=== PATIENT | male | born 1940 | race Caucasian/White ===

== ENCOUNTER 2018-03-08 05:47 | Inpatient (IN) | payer MEDICARE, BC ==
[~2018-03-08] VITALS: Ht 200.7 cm; Wt 95.0 kg
[~2018-03-08 05:47] MED LIST: ACET325 PO; ALBU90OI61 INH; ALPR.25 PO; AMIO200 PO; AMOX875 PO; CARV6.25 PO; CEPH500 PO; CHOL10002 PO; CITRUS BIOFLAV120 GM PO; CYAN100 PO; DIGO.125 PO; DULO30 PO; ERGO50000 PO; FISH OIL 1,0001 EAC1 PO; FISH1000 PO; Flomax0.4 MG PO; GABA100 PO; GABA300 PO; GAVISON; GLUC500 PO; GLUCHON PO; GLUCOSAMINE/MSN PO; Gaviscon Extra355 ML PO; HYDACE5 PO; HYDCHL12.5 PO; IBUP400 PO; IRON; IRON PO; IRON150C PO; LOSA50 PO; MAGOXI400 PO; MSM1000 M1 PO; MULVITMINA PO; MULVITMIND PO; MULVITMINF PO; NEBI10 PO; Norco 5-325 Ta1 EACH PO; OXYACE5T PO; PRAV20 PO; Percocet 5-3251 EACH PO; RXOXYACE PO; SPIHYD PO; VIT B COMPLEX PO; VITNEPH PO; WARF1 PO; WARF5 PO; WARF6 PO; WARF7.5 PO; Zofran Odt4 MG PO
[2018-03-09 04:28] LABS: BASOPHILS ABSOLUTE AUTO 0.02 K/mm3 (0.00-0.23); BASOPHILS PERCENT AUTO 0 % (0-2); EOSINOPHILS ABSOLUTE AUTO 0.14 K/mm3 (0.00-0.68); EOSINOPHILS PERCENT AUTO 2 % (0-6); Hematocrit 39.1 % (37.0-53.0); Hemoglobin 13.4 g/dL (13.5-17.5); IMMATURE GRAN ABSOLUTE AUTO 0.03 K/mm3 (0.00-0.10); IMMATURE GRAN PERCENT AUTO 0 % (0-1); LYMPHOCYTES PERCENT AUTO 19 % (21-46); MONOCYTES ABSOLUTE AUTO 0.97 K/mm3 (0.16-1.47); MONOCYTES PERCENT AUTO 12 % (4-13); Mean Corpuscular HGB 34.1 pg (26.0-34.0); Mean Corpuscular HGB Conc 34.3 g/dL (31.5-36.5); Mean Corpuscular Volume 100 fL (80-100); Mean Platelet Volume 9.9 fL (9.1-12.4); NEUTROPHILS PERCENT AUTO 67 % (41-73); Platelet Count 162 K/mm3 (150-400); RDW Coefficient Variation 12.8 % (11.7-14.2); RDW Standard Deviation 47.3 fL (35.1-46.3); Red Blood Cell Count 3.93 M/mm3 (4.30-5.90); White Blood Cell Count 8.46 K/mm3 (4.00-11.30)
[2018-03-09 04:41] LABS: International Normalized Ratio 1.07; Prothrombin Time Results 11.2 Sec (9.7-11.5)
[2018-03-09] MEDS ORDERED: ASPI325 PO (09:05)
[2018-03-09] MEDS ORDERED: CLOP75 PO (09:06)
== END 2018-03-09 10:54 | disposition home or self-care (01) | DRG 249 ==
LOC: MHTC 05:47 → PCU 09:55 → MHTC 16:00 → PCU 03-09 10:54
PROVIDERS: Emergency Medicine
PROC: 02703DZ Dilation of Coronary Artery, One Artery with Intraluminal Device, Percutaneous Approach (ICD-10-PCS; principal; 2018-03-08)
PROC: 4A023N7 Measurement of Cardiac Sampling and Pressure, Left Heart, Percutaneous Approach (ICD-10-PCS; 2018-03-08)
PROC: B2111ZZ Fluoroscopy of Multiple Coronary Arteries using Low Osmolar Contrast (ICD-10-PCS; 2018-03-08)
DX: I25.119 Atherosclerotic heart disease of native coronary artery with unspecified angina pectoris (principal); I48.2 Chronic atrial fibrillation; Z79.01 Long term (current) use of anticoagulants; I10 Essential (primary) hypertension; E78.5 Hyperlipidemia, unspecified; I73.9 Peripheral vascular disease, unspecified; M54.9 Dorsalgia, unspecified; G89.29 Other chronic pain
CPT/HCPCS: 36415; 82565; 85025; 85347; 85610; 92928; 92978; 93005; 93010; 93454; 93571; 94762; 99152; 99153; C1725; C1753; C1769; C1876; C1887; C1894; J1644; J2250; J3010; J7030; Q9967

== ENCOUNTER 2018-07-26 04:37 | Emergency (ER) | payer MEDICARE, BC ==
[~2018-07-26] VITALS: Ht 170.2 cm; Wt 93.9 kg
[~2018-07-26 04:37] MED LIST changes: +ASPI325 PO; +CLOP75 PO
[2018-07-26 04:57] LABS: BASOPHILS ABSOLUTE AUTO 0.03 K/mm3 (0.00-0.23); BASOPHILS PERCENT AUTO 0 % (0-2); EOSINOPHILS ABSOLUTE AUTO 0.19 K/mm3 (0.00-0.68); EOSINOPHILS PERCENT AUTO 3 % (0-6); Hematocrit 41.4 % (37.0-53.0); Hemoglobin 13.7 g/dL (13.5-17.5); IMMATURE GRAN ABSOLUTE AUTO 0.02 K/mm3 (0.00-0.10); IMMATURE GRAN PERCENT AUTO 0 % (0-1); LYMPHOCYTES ABSOLUTE AUTO 2.15 K/mm3 (0.84-5.20); LYMPHOCYTES PERCENT AUTO 29 % (21-46); MONOCYTES ABSOLUTE AUTO 0.81 K/mm3 (0.16-1.47); MONOCYTES PERCENT AUTO 11 % (4-13); Mean Corpuscular HGB 33.3 pg (26.0-34.0); Mean Corpuscular HGB Conc 33.1 g/dL (31.5-36.5); Mean Corpuscular Volume 101 fL (80-100); Mean Platelet Volume 9.8 fL (9.1-12.4); NEUTROPHILS ABSOLUTE AUTO 4.26 K/mm3 (1.96-9.15); NEUTROPHILS PERCENT AUTO 57 % (41-73); Platelet Count 170 K/mm3 (150-400); RDW Coefficient Variation 12.8 % (11.7-14.2); RDW Standard Deviation 47.9 fL (35.1-46.3); Red Blood Cell Count 4.11 M/mm3 (4.30-5.90); White Blood Cell Count 7.46 K/mm3 (4.00-11.30)
[2018-07-26 05:29] LABS: Alanine Aminotransfer (ALT/SGP 28 U/L (12-78); Albumin, Blood 3.4 g/dL (3.4-5.0); Albumin/Globulin Ratio 0.8 (0.8-1.8); Alk Phos 85 U/L (50-136); Anion Gap 5 mmol/L (6-16); Aspartate Aminotrans (AST/SGOT 26 U/L (12-37); Bilirubin, Total 0.4 mg/dL (0.1-1.0); Blood Urea Nitrogen 15 mg/dL (8-24); Bun/Creatinine Ratio 16.3 (12.0-20.0); CO2, Blood 31 mmol/L (21-32); Calcium, Blood 8.7 mg/dL (8.5-10.1); Chloride, Blood 101 mmol/L (98-108); Creatinine, Blood 0.92 mg/dL (0.60-1.20); Glomerular Filtration Rate >60 (60-); Glucose, Blood 102 mg/dL (70-99); Potassium, Blood 4.3 mmol/L (3.5-5.5); Sodium, Blood 137 mmol/L (136-145); Total Protein, Blood 7.4 g/dL (6.4-8.2)
== END 2018-07-26 06:40 | disposition home or self-care (01) ==
LOC: ER 04:37
PROVIDERS: Emergency Medicine
DX: R10.32 Left lower quadrant pain (principal); I48.91 Unspecified atrial fibrillation; Z79.899 Other long term (current) drug therapy; Z79.01 Long term (current) use of anticoagulants; Z79.51 Long term (current) use of inhaled steroids; Z79.82 Long term (current) use of aspirin
CPT/HCPCS: 36415; 74176; 80053; 85025; 99284-25

== ENCOUNTER 2019-06-29 16:02 | Emergency (ER) | payer MEDICARE, BC ==
[~2019-06-29] VITALS: Ht 170.2 cm; Wt 95.2 kg
[~2019-06-29 16:02] MED LIST changes: +CENTRUM SILVER1 EAC2 PO; -MULVITMINF PO; +VITAMIN D35000 UNIT PO
[2019-06-29] MEDS ORDERED: TAMS.4ER PO (16:58)
[2019-06-29] MEDS ORDERED: GABA300 PO (16:59)
[2019-06-29] MEDS ORDERED: Percocet 5-3251 EACH PO (17:01)
[2019-06-29] MEDS ORDERED: Voltaren100 GM TOP (18:09)
[2019-06-29] MEDS ORDERED: Robaxin-750750 MG PO (18:09)
== END 2019-06-29 18:18 | disposition home or self-care (01) ==
LOC: ER 16:02
DX: S32.019A Unspecified fracture of first lumbar vertebra, initial encounter for closed fracture (principal); Z79.01 Long term (current) use of anticoagulants; Z79.899 Other long term (current) drug therapy; G89.29 Other chronic pain; M54.9 Dorsalgia, unspecified; N40.0 Benign prostatic hyperplasia without lower urinary tract symptoms; I48.92 Unspecified atrial flutter; E78.5 Hyperlipidemia, unspecified; I10 Essential (primary) hypertension; Z87.01 Personal history of pneumonia (recurrent); V89.2XXA Person injured in unspecified motor-vehicle accident, traffic, initial encounter
CPT/HCPCS: 72070; 72100; 96372; 99283-25; J1885

== ENCOUNTER → 2021-10-13 | Outpatient (CLI) | payer MEDICARE, BC ==
[~2021-10-13] MED LIST changes: +Robaxin-750750 MG PO; +TAMS.4ER PO; +Voltaren100 GM TOP
[2021-10-13 16:07] LABS: U Amphetamine Screen Not Detected; U Barbituate Screen Not Detected; U Benzodiazapine Screen Not Detected; U Buprenorphine Screen Not Detected; U Cannabinoids Screen DETECTED; U Cocaine Screen Not Detected; U Methadone Screen Not Detected; U Methamphetamine Screen Not Detected; U Opiates Screen Not Detected; U Oxycodone Screen Not Detected; U Phencyclidine Screen Not Detected; U Propoxyphene Screen Not Detected
== END | disposition home or self-care (01) ==
LOC: LAB SHORT 12:00
PROVIDERS: Internal Medicine Hematology & Oncology
DX: Z51.81 Encounter for therapeutic drug level monitoring (principal); Z79.899 Other long term (current) drug therapy

== ENCOUNTER 2023-03-03 22:22 | Inpatient (IN) | payer MEDICARE, BC ==
[~2023-03-03] VITALS: Ht 167.6 cm; Wt 86.8 kg
[~2023-03-03 22:22] MED LIST changes: +LOSA25 PO; +METOPROLOL TART50 M1 PO; +MONT10T PO; +PANT40 PO; +SPIR25 PO; +STIOLTO RESPIMAT4 G1; +TORS10 PO; +VITAMIN D310 MC4 PO; -VITAMIN D35000 UNIT PO
[2023-03-04 00:05] LABS: BASOPHILS ABSOLUTE AUTO 0.05 K/mm3 (0.00-0.23); BASOPHILS PERCENT AUTO 0 % (0-2); EOSINOPHILS ABSOLUTE AUTO 0.02 K/mm3 (0.00-0.68); EOSINOPHILS PERCENT AUTO 0 % (0-6); Hematocrit 41.7 % (37.0-53.0); Hemoglobin 13.9 g/dL (13.5-17.5); IMMATURE GRAN ABSOLUTE AUTO 0.05 K/mm3 (0.00-0.10); IMMATURE GRAN PERCENT AUTO 0 % (0-1); LYMPHOCYTES ABSOLUTE AUTO 1.22 K/mm3 (0.84-5.20); LYMPHOCYTES PERCENT AUTO 9 % (21-46); MONOCYTES ABSOLUTE AUTO 1.25 K/mm3 (0.16-1.47); MONOCYTES PERCENT AUTO 9 % (4-13); Mean Corpuscular HGB 33.3 pg (26.0-34.0); Mean Corpuscular HGB Conc 33.3 g/dL (31.5-36.5); Mean Corpuscular Volume 100 fL (80-100); Mean Platelet Volume 10.5 fL (9.1-12.4); NEUTROPHILS ABSOLUTE AUTO 11.05 K/mm3 (1.96-9.15); NEUTROPHILS PERCENT AUTO 81 % (41-73); Platelet Count 171 K/mm3 (150-400); RDW Coefficient Variation 13.5 % (11.7-14.2); RDW Standard Deviation 49.3 fL (35.1-46.3); Red Blood Cell Count 4.18 M/mm3 (4.30-5.90); White Blood Cell Count 13.64 K/mm3 (4.00-11.30)
[2023-03-04 00:18] LABS: Albumin, Blood 3.6 g/dL (3.4-5.0); Bilirubin, Total 0.9 mg/dL (0.1-1.0); Bun/Creatinine Ratio 23.1 (12.0-20.0); Calcium, Blood 8.9 mg/dL (8.5-10.1); Creatinine, Blood 1.04 mg/dL (0.60-1.20); Globulin, Blood 3.7 g/dL (2.2-4.0); Potassium, Blood 4.5 mmol/L (3.5-5.5); Total Protein, Blood 7.3 g/dL (6.4-8.2)
[2023-03-04 00:26] LABS: Base Excess Venous 2.6 mmol/L; Bicarbonate Venous 25.3 mmol/L (24.0-30.0); PCO2 Venous 51.4 mmHg (38-42); pH Blood Venous 7.35 (7.34-7.37)
[2023-03-04 00:49] LABS: International Normalized Ratio 1.92; Prothrombin Time Results 19.4 Sec (9.7-11.5)
[2023-03-04 01:09] LABS: Influenza A, PCR NEGATIVE (NEGATIVE); Influenza B, PCR NEGATIVE (NEGATIVE); Resp Syncytial Virus, PCR NEGATIVE (NEGATIVE); SARS-Cov-2 (COVID-19) PCR, MMC NEGATIVE (NEGATIVE)
[2023-03-04 01:47] LABS: Magnesium, Blood 1.9 mg/dL (1.6-2.4)
[2023-03-04] MEDS ORDERED: AMLO5 PO (02:51)
[2023-03-04 03:18] VITALS: BP 140/102
[2023-03-04] MEDS ORDERED: REPATHA SY140 MG/1 M (03:26)
--- NOTE | 2023-03-04 04:56 | NUR ---
ADMIT/SHIFT SUMMARY PT TO UNIT FROM ER. AXO. ON 2LNS, TITRATED TO 6LNC TO MAINTAIN SPO2 >92%. PT DESATS WITH GETTING P TO 82%, TAKES 2MINUTES OF REST TO RECOUPERATE. PT BEING DIURESED WELL WITH MUCH OUTPUT. IN AFIB, CONTROLLED HR CURRENTLY. VSS. SKIN WITHOUT BREAKDOWN. ADMISSION COMPLETE. PT WITH BED ALARM ON. BED IN LOW POSITION WITH CALL LIGHT IN HAND.
[2023-03-04 07:11] LABS: BASOPHILS ABSOLUTE AUTO 0.05 K/mm3 (0.00-0.23); BASOPHILS PERCENT AUTO 0 % (0-2); EOSINOPHILS ABSOLUTE AUTO 0.04 K/mm3 (0.00-0.68); EOSINOPHILS PERCENT AUTO 0 % (0-6); Hematocrit 37.6 % (37.0-53.0); Hemoglobin 12.7 g/dL (13.5-17.5); IMMATURE GRAN ABSOLUTE AUTO 0.04 K/mm3 (0.00-0.10); IMMATURE GRAN PERCENT AUTO 0 % (0-1); LYMPHOCYTES ABSOLUTE AUTO 1.89 K/mm3 (0.84-5.20); LYMPHOCYTES PERCENT AUTO 16 % (21-46); MONOCYTES PERCENT AUTO 12 % (4-13); Mean Corpuscular HGB 33.1 pg (26.0-34.0); Mean Corpuscular HGB Conc 33.8 g/dL (31.5-36.5); Mean Corpuscular Volume 98 fL (80-100); Mean Platelet Volume 10.1 fL (9.1-12.4); NEUTROPHILS ABSOLUTE AUTO 8.47 K/mm3 (1.96-9.15); NEUTROPHILS PERCENT AUTO 71 % (41-73); Platelet Count 154 K/mm3 (150-400); RDW Coefficient Variation 13.4 % (11.7-14.2); RDW Standard Deviation 47.9 fL (35.1-46.3); Red Blood Cell Count 3.84 M/mm3 (4.30-5.90); White Blood Cell Count 11.89 K/mm3 (4.00-11.30)
[2023-03-04 07:17] VITALS: BP 135/99
--- NOTE | 2023-03-04 07:26 | NUR ---
CARE ASSUMPTION This RN assumed care at 0700. vital signs stable. patient is alert and oriented x4. perrla. spo2 >92% on 6l nc. baseline is room air. patient reports no shortness of breaht with rest, but with activity patient becomes short of breath. patient is tachypenic at baseline. tele afib [id number]. patient reports no chest pain/pressure. minimal edema in bilateral lower extremities, and trace edema in bilateral feet. patient is able to void. skin is clean dry and intact. abd soft active and nontender. see shift assessment for further detials. plan of care is up to date.
[2023-03-04 09:13] LABS: Albumin, Blood 3.2 g/dL (3.4-5.0); Bilirubin, Total 0.9 mg/dL (0.1-1.0); Bun/Creatinine Ratio 17.9 (12.0-20.0); Calcium, Blood 8.2 mg/dL (8.5-10.1); Creatinine, Blood 1.06 mg/dL (0.60-1.20); Globulin, Blood 3.3 g/dL (2.2-4.0); Potassium, Blood 3.9 mmol/L (3.5-5.5); Total Protein, Blood 6.5 g/dL (6.4-8.2)
[2023-03-04 11:03] VITALS: BP 116/56
[2023-03-04 15:57] VITALS: BP 115/80
--- NOTE | 2023-03-04 16:55 | NUR ---
SHIFT SUMMARY Patient neuro remains unchaged this shift. neuro is intact. patient reported cramping throughout the body that comes and goes and has icy hot for releif and heating pad. patient uses bedside urinal. patient reported no chest pain/pressure this shift. patient reports shortness of breath with activity. patient worked with physical therapy and occupational therapy. patient is at bedside. patient uses call light appropriately. plan of care is up to date. no acute changes this shift.
[2023-03-04 19:58] VITALS: BP 128/86
[2023-03-04 23:57] VITALS: BP 121/78
[2023-03-05] VITALS (7 sets, daily range): BP systolic 100–135; BP diastolic 74–98
[2023-03-05 05:00] LABS: International Normalized Ratio 1.44; Prothrombin Time Results 14.8 Sec (9.7-11.5)
--- NOTE | 2023-03-05 06:17 | NUR ---
SHIFT SUMMARY PATIENT ALERT AND ORIENTED, ABLE TO MAKE NEEDS KNOWN TO STAFF. VITALS STABLE, PATIENT WORE CPAP WHILE SLEEPING, SPO2 >92%. PATIENT USING URINAL INDEPENDENTLY WITH ADEQUATE URINE OUTPUT. PATIENT ABLE TO REPOSITION SELF IN BED. NO SIGNIFICANT CHANGES THIS SHIFT, WILL REPORT TO DAY SHIFT RN.
[2023-03-05 07:56] LABS: BASOPHILS ABSOLUTE AUTO 0.04 K/mm3 (0.00-0.23); BASOPHILS PERCENT AUTO 1 % (0-2); EOSINOPHILS ABSOLUTE AUTO 0.19 K/mm3 (0.00-0.68); EOSINOPHILS PERCENT AUTO 2 % (0-6); Hemoglobin 13.3 g/dL (13.5-17.5); IMMATURE GRAN ABSOLUTE AUTO 0.01 K/mm3 (0.00-0.10); IMMATURE GRAN PERCENT AUTO 0 % (0-1); LYMPHOCYTES ABSOLUTE AUTO 2.24 K/mm3 (0.84-5.20); LYMPHOCYTES PERCENT AUTO 29 % (21-46); MONOCYTES ABSOLUTE AUTO 1.18 K/mm3 (0.16-1.47); MONOCYTES PERCENT AUTO 15 % (4-13); Mean Corpuscular HGB 32.9 pg (26.0-34.0); Mean Corpuscular HGB Conc 33.3 g/dL (31.5-36.5); Mean Corpuscular Volume 99 fL (80-100); Mean Platelet Volume 10.8 fL (9.1-12.4); NEUTROPHILS PERCENT AUTO 53 % (41-73); Platelet Count 160 K/mm3 (150-400); RDW Coefficient Variation 13.4 % (11.7-14.2); RDW Standard Deviation 49.1 fL (35.1-46.3); Red Blood Cell Count 4.04 M/mm3 (4.30-5.90); White Blood Cell Count 7.76 K/mm3 (4.00-11.30)
[2023-03-05 08:06] LABS: Bun/Creatinine Ratio 22.7 (12.0-20.0); Calcium, Blood 8.6 mg/dL (8.5-10.1); Creatinine, Blood 1.1 mg/dL (0.60-1.20); Potassium, Blood 3.6 mmol/L (3.5-5.5)
--- NOTE | 2023-03-05 17:34 | NUR ---
SHIFT SUMMARY Patient neuro remains intact. patient has remained pain free, chest pain/pressure, and shortness of breath. no acute changes throughout this shift. vital signs stable. spo2 >90% on 3l nc. tele afib 110s. plan of care is up to date. call light within reach and bed in lowest position.
[2023-03-06 04:27] VITALS: BP 126/85
[2023-03-06 05:28] LABS: Hematocrit 40.8 % (37.0-53.0); Hemoglobin 13.6 g/dL (13.5-17.5); Mean Corpuscular HGB 32.9 pg (26.0-34.0); Mean Corpuscular HGB Conc 33.3 g/dL (31.5-36.5); Mean Corpuscular Volume 99 fL (80-100); Mean Platelet Volume 10.8 fL (9.1-12.4); Platelet Count 165 K/mm3 (150-400); RDW Coefficient Variation 13.3 % (11.7-14.2); RDW Standard Deviation 48.1 fL (35.1-46.3); Red Blood Cell Count 4.13 M/mm3 (4.30-5.90); White Blood Cell Count 8.05 K/mm3 (4.00-11.30)
[2023-03-06 05:42] LABS: International Normalized Ratio 1.33; Prothrombin Time Results 13.7 Sec (9.7-11.5)
[2023-03-06 06:07] LABS: Bun/Creatinine Ratio 26.4 (12.0-20.0); Calcium, Blood 9.3 mg/dL (8.5-10.1); Creatinine, Blood 1.25 mg/dL (0.60-1.20); Potassium, Blood 3.9 mmol/L (3.5-5.5)
--- NOTE | 2023-03-06 06:14 | NUR ---
SHIFT SUMMARY PATIENT ALERT AND ORIENTED x4, ABLE TO MAKE NEEDS KNOWN TO STAFF, USES CALL LIGHT APPROPRIATELY. BP STABLE, HR 100s-110s, PATIENT WORE CPAP ALL NIGHT WHILE SLEEPING, SPO2 >91%. USING URINAL INDEPDENDENTLY AT BEDSIDE WITH ADEQUATE URINE OUTPUT . ABLE TO MOVE SELF IN BED. NO SIGNIFICANT CHANGES OVERNIGHT, WILL REPORT TO DAY SHIFT RN.
[2023-03-06 07:59] VITALS: BP 108/76
[2023-03-06 11:30] VITALS: BP 102/74
--- NOTE | 2023-03-06 14:57 | NUR ---
DISCHARGE NOTE PT REMAINED ALERT AND ORIENTED X 4, VSS. THIS NURSE DISCUSSED DISCHARGE INSTRUCTIONS INCLUDING FOLLOW UP APPOINTMENTS, MEDICATIONS AND NEED TO HAVE INR CHECKED PER 'S ORDERS, INR SCRIPT SENT W/ PT ALONG W/ D/C INSTRUCTIONS AND EDUCATION REGARDING CHF EXACERBATION. THIS NURSE REMOVED PERIPHERAL IV IN L AC. PT LEFT PCU AT APPROX. 1450 W/ HIS AND ALL OF PERSONAL BELONGINGS.
== END 2023-03-06 14:47 | disposition home or self-care (01) | DRG 291 ==
LOC: ER 22:22 → PCU 03-04 02:22
PROVIDERS: Student in an Organized Health Care Education/Training Program; ADMIT Internal Medicine
PROC: 5A09357 Assistance with Respiratory Ventilation, Less than 24 Consecutive Hours, Continuous Positive Airway Pressure (ICD-10-PCS; principal; 2023-03-04)
DX: I11.0 Hypertensive heart disease with heart failure (principal); I50.31 Acute diastolic (congestive) heart failure; J96.01 Acute respiratory failure with hypoxia; I48.91 Unspecified atrial fibrillation; G47.33 Obstructive sleep apnea (adult) (pediatric); R79.1 Abnormal coagulation profile; E78.5 Hyperlipidemia, unspecified; J98.6 Disorders of diaphragm; K46.9 Unspecified abdominal hernia without obstruction or gangrene; E87.6 Hypokalemia; F10.10 Alcohol abuse, uncomplicated; Z20.822 Contact with and (suspected) exposure to COVID-19; Z79.899 Other long term (current) drug therapy; Z99.81 Dependence on supplemental oxygen; Z79.891 Long term (current) use of opiate analgesic; Z79.01 Long term (current) use of anticoagulants; Z91.148 Patient's other noncompliance with medication regimen for other reason; Z79.51 Long term (current) use of inhaled steroids; Z85.47 Personal history of malignant neoplasm of testis
CPT/HCPCS: 0241U; 36415; 71046; 80048; 80053; 82803; 83735; 83880; 84484; 85025; 85027; 85610; 93005; 93010; 94640; 94660; 94664; 94762; 96365; 96375; 97116; 97162; 97166; 97530; 99285-25; A9270; J0456; J0696; J1940; J7050; J7512